=== PATIENT | male | born 1945 | race Hispanic/Latino ===

== ENCOUNTER 2018-02-28 07:14 | Day surgery (SDC) | payer MEDICARE ==
[2018-02-28] MEDS ORDERED: Lactated Ringer's 500 ML IV ONE (07:54)
[2018-02-28] MEDS ORDERED: Propofol 10 mg/ml Inj (20 ML) ONE (08:41)
[2018-02-28 09:23] VITALS: TEMP 97.6; O2SAT 98
[2018-02-28 09:25] VITALS: BP 117/68; PULSE 67; RESP 13
== END 2018-02-28 09:33 | disposition home or self-care (01) ==
LOC: H.ENDO 07:14
PROVIDERS: ATTEND Internal Medicine Gastroenterology
DX: Z12.11 Encounter for screening for malignant neoplasm of colon (principal); E78.5 Hyperlipidemia, unspecified; I10 Essential (primary) hypertension; K64.8 Other hemorrhoids
CPT/HCPCS: 45378; 82948; J2001; J2704; J7120